=== PATIENT | female | born 1960 | race Caucasian/White ===

== ENCOUNTER 2021-07-23 06:12 | Observation (INO) ==
[~2021-07-23 06:12] MED LIST: Celecoxib 200 MG CAPSULE PO SCH; Famotidine 20 MG TABLET PO ONE
[2021-07-23] MEDS ORDERED: Clindamycin 900 MG/50 ML 900 MG/50 ML IV.SOLN IVPB ONE (06:45)
[2021-07-23] MEDS ORDERED: Ringers Solution, Lactated 1,000 ML IVC SCH ×2 (06:45→13:11)
[2021-07-23] MEDS ORDERED: *HR* FentaNYL (PF) 100 MCG/2 ML VIAL ONE (06:48)
[2021-07-23] MEDS ORDERED: Lidocaine -MPF 2% 5 ML VIAL ONE (06:48)
[2021-07-23] MEDS ORDERED: *HR* Midazolam HCl 2 MG/2 ML VIAL ONE (06:48)
[2021-07-23] MEDS ORDERED: Ropivacaine/PF 0.5% 30 ML VIAL ONE (06:53)
[2021-07-23] MEDS ORDERED: ROPIVACAINE/PF/NS 0.25% 1 EACH SYRINGE INTRAART ONE (06:54)
[2021-07-23] MEDS ORDERED: ceFAZolin 2,000 MG in Water for inj. (sterile) 20 ML IVP ONE (07:27)
[2021-07-23] MEDS ORDERED: EPHEDrine 50 MG/ML VIAL ONE (07:27)
[2021-07-23] MEDS ORDERED: TOTAL JOINT MIXTURE (100ML) INTRAART ONE (07:30)
[2021-07-23] MEDS ORDERED: Povidone-Iodine 45 ML, Sodium Chloride IRRigation 1,000 ML IR ONE (07:30)
[2021-07-23] MEDS ORDERED: Tranexamic Acid 1,000 MG/10 ML VIAL ONE ×2 (07:59)
[2021-07-23] MEDS ORDERED: Ondansetron 4 MG/2 ML VIAL ONE (08:02)
[2021-07-23] MEDS ORDERED: *HR* Propofol 200 MG/20 ML VIAL IVP ONE ×2 (08:27→08:53)
[2021-07-23] MEDS ORDERED: Ondansetron 4 MG/2 ML VIAL IVP PRN (13:11)
[2021-07-23] MEDS ORDERED: Naloxone 0.4 MG/ML INJ IVP PRN (13:11)
[2021-07-23] MEDS ORDERED: MOM Conc 10 ML UD.LIQ PO PRN (13:11)
[2021-07-23] MEDS ORDERED: Morphine Sulfate 2 MG/ML SYRINGE IVP PRN (13:11)
[2021-07-23] MEDS ORDERED: *HR* Promethazine 25 MG/ML VIAL IM PRN (13:11)
[2021-07-23] MEDS: Ketorolac 30 MG/ML VIAL IVP SCH ×3 (14:56→23:34)
[2021-07-23] MEDS: CeFAZolin 2 GM/120 ML BAG IVPB SCH ×2 (18:01→23:35)
[2021-07-23] MEDS: Ascorbic Acid 500 MG TABLET PO SCH (18:02)
[2021-07-23] MEDS: Gabapentin 400 MG CAPSULE PO SCH (20:45)
[2021-07-23] MEDS: Apixaban 5 MG TABLET PO SCH (20:45)
[2021-07-23] MEDS ORDERED: Sennosides 8.6 MG TABLET PO PRN (21:00)
[2021-07-24] MEDS: Ketorolac 30 MG/ML VIAL IVP SCH ×4 (06:33→23:51)
[2021-07-24 06:52] LABS: Basophils % 0.1 %; Hematocrit 33.8 % (35.3-44.9); Hemoglobin 10.9 g/dL (11.5-15.4); Immature Granulocytes % 0.5 % (0-4); Lymphocytes # 1.3 K/mcL (0.6-4.6); Lymphocytes % 8.8 %; Mean Corpuscular HGB Conc 32.2 g/dL (31.6-35.5); Mean Corpuscular Hemoglobin 28.5 pg (28.0-33.3); Mean Corpuscular Volume 88.5 fL (83.0-100.0); Mean Platelet Volume 9.9 fL (9.4-12.4); Monocytes # 0.8 K/mcL (0.0-1.3); Monocytes % 5.4 %; Neutrophils # 12.9 K/mcL (1.6-8.9); Platelet Count 271 K/mcL (140-400); Red Blood Count 3.82 M/mcL (3.82-4.97); Red Cell Distribution Width 13.3 % (11.5-14.5); Segmented Neutrophils % 85.2 %; White Blood Count 15.1 K/mcL (4.3-11.1)
[2021-07-24 07:05] LABS: BUN/Creatinine Ratio 23 (6-26); Blood Urea Nitrogen 17 mg/dL (6-20); Calcium 8.6 mg/dL (8.6-10.3); Carbon Dioxide 27 mEq/L (23-29); Chloride 103 mEq/L (98-107); Glucose 138 mg/dL (70-105); Osmolality,Calculated 288 (280-300); Potassium 4.5 mEq/L (3.5-5.1); Sodium 137 mEq/L (136-145); eGFR For African Americans > 60 (> 60); eGFR For Non-African Americans > 60 (> 60)
[2021-07-24] MEDS: lisinopriL 20 MG TABLET PO SCH (08:44)
[2021-07-24] MEDS: Multivit/Ca/Min/Fe/FA 1 TAB TABLET PO SCH (08:44)
[2021-07-24] MEDS: Apixaban 5 MG TABLET PO SCH ×2 (08:44→20:03)
[2021-07-24] MEDS: Gabapentin 400 MG CAPSULE PO SCH ×2 (08:45→20:03)
[2021-07-24] MEDS: Spironolactone 25 MG TABLET PO SCH (08:46)
[2021-07-24] MEDS: Ascorbic Acid 500 MG TABLET PO SCH ×2 (08:47→16:22)
[2021-07-24] MEDS: Loratadine 10 MG TABLET PO SCH (09:00)
[2021-07-25] MEDS: *HR* OxyCODONE Immed Rel 5 MG TABLET PO PRN ×2 (00:45→06:44)
[2021-07-25 02:51] LABS: Basophils % 0.3 %; Eosinophils # 0.1 K/mcL (0.0-0.6); Eosinophils % 0.5 %; Hematocrit 32.8 % (35.3-44.9); Hemoglobin 10.6 g/dL (11.5-15.4); Immature Granulocytes % 0.8 % (0-4); Lymphocytes % 22.4 %; Mean Corpuscular HGB Conc 32.3 g/dL (31.6-35.5); Mean Corpuscular Hemoglobin 29.1 pg (28.0-33.3); Mean Corpuscular Volume 90.1 fL (83.0-100.0); Mean Platelet Volume 9.5 fL (9.4-12.4); Monocytes # 1.1 K/mcL (0.0-1.3); Monocytes % 8.3 %; Platelet Count 244 K/mcL (140-400); Red Blood Count 3.64 M/mcL (3.82-4.97); Red Cell Distribution Width 13.7 % (11.5-14.5); Segmented Neutrophils % 67.7 %; White Blood Count 13.3 K/mcL (4.3-11.1)
[2021-07-25 03:08] LABS: BUN/Creatinine Ratio 28 (6-26); Blood Urea Nitrogen 22 mg/dL (6-20); Calcium 8.3 mg/dL (8.6-10.3); Carbon Dioxide 28 mEq/L (23-29); Chloride 104 mEq/L (98-107); Glucose 106 mg/dL (70-105); Osmolality,Calculated 288 (280-300); Potassium 4.5 mEq/L (3.5-5.1); Sodium 137 mEq/L (136-145); eGFR For African Americans > 60 (> 60); eGFR For Non-African Americans > 60 (> 60)
[2021-07-25] MEDS: Ketorolac 30 MG/ML VIAL IVP SCH ×2 (05:06→10:23)
[2021-07-25] MEDS: lisinopriL 20 MG TABLET PO SCH (08:29)
[2021-07-25] MEDS: Gabapentin 400 MG CAPSULE PO SCH (08:29)
[2021-07-25] MEDS: Spironolactone 25 MG TABLET PO SCH (08:30)
[2021-07-25] MEDS: Multivit/Ca/Min/Fe/FA 1 TAB TABLET PO SCH (08:30)
[2021-07-25] MEDS: Loratadine 10 MG TABLET PO SCH (08:30)
[2021-07-25] MEDS: Apixaban 5 MG TABLET PO SCH (08:30)
[2021-07-25] MEDS: Ascorbic Acid 500 MG TABLET PO SCH (08:31)
[2021-07-25 10:53] VITALS: BP 110/66; PULSE 76; TEMP 97.4; O2SAT 96
== END 2021-07-25 13:48 | disposition home or self-care (01) ==
LOC: SDCAOSI 06:12 → 4WAOSI 06:12
PROVIDERS: ADMIT Orthopaedic Surgery; ATTEND Orthopaedic Surgery